=== PATIENT | female | born 1945 | race Caucasian/White ===

== ENCOUNTER 2022-07-18 10:16 | Inpatient (IN) ==
[2022-07-18] MEDS ORDERED: *HR* LORazepam 2 MG/ML VIAL ONE (10:39)
[2022-07-18] MEDS ORDERED: 0.9 % Sodium Chloride 1,000 ML ONE (10:43)
[2022-07-18] MEDS ORDERED: 0.9 % Sodium Chloride 500 ML IVC ONE (10:50)
[2022-07-18] MEDS ORDERED: Ondansetron ODT 4 MG TAB.RAPDIS SL ONE (10:59)
[2022-07-18 11:17] LABS: Basophils % 0.2 %; Hemoglobin 13.5 g/dL (11.5-15.4); Immature Granulocytes % 1.2 % (0-4); Lymphocytes # 1.5 K/mcL (0.6-4.6); Lymphocytes % 15.2 %; Mean Corpuscular HGB Conc 32.9 g/dL (31.6-35.5); Mean Corpuscular Hemoglobin 33.1 pg (28.0-33.3); Mean Corpuscular Volume 100.5 fL (83.0-100.0); Mean Platelet Volume 10.1 fL (9.4-12.4); Monocytes # 0.6 K/mcL (0.0-1.3); Monocytes % 6.3 %; Neutrophils # 7.6 K/mcL (1.6-8.9); Platelet Count 166 K/mcL (140-400); Red Blood Count 4.08 M/mcL (3.82-4.97); Red Cell Distribution Width 13.6 % (11.5-14.5); Segmented Neutrophils % 77.1 %; White Blood Count 9.9 K/mcL (4.3-11.1)
[2022-07-18 11:24] LABS: Prothrombin Time 11.6 Seconds (9.4-12.1)
[2022-07-18 11:44] LABS: Calcium 9.6 mg/dL (8.6-10.3); Potassium 4.6 mEq/L (3.5-5.1); Troponin I 3.15 ng/mL (< 0.04)
[2022-07-18] MEDS ORDERED: *HR* Heparin 5,000 UNIT/ML VIAL IVP PRN ×2 (12:58)
[2022-07-18] MEDS ORDERED: *HR* Heparin 5,000 UNIT/ML VIAL IVP ONE (12:58)
[2022-07-18] MEDS ORDERED: Acetaminophen 325 MG TABLET PO PRN (13:35)
[2022-07-18] MEDS ORDERED: Naloxone 0.4 MG/ML INJ IVP PRN (13:35)
[2022-07-18] MEDS ORDERED: Ondansetron 4 MG/2 ML VIAL IVP PRN (13:35)
[2022-07-18] MEDS ORDERED: Nitroglycerin 0.4 MG TAB.SUBL SL PRN (13:46)
[2022-07-18 14:28] LABS: Hemoglobin 11.8 g/dL (11.5-15.4); Mean Corpuscular HGB Conc 33.7 g/dL (31.6-35.5); Mean Corpuscular Hemoglobin 33.4 pg (28.0-33.3); Mean Corpuscular Volume 99.2 fL (83.0-100.0); Mean Platelet Volume 10.4 fL (9.4-12.4); Red Blood Count 3.53 M/mcL (3.82-4.97); Red Cell Distribution Width 13.5 % (11.5-14.5); White Blood Count 7.4 K/mcL (4.3-11.1)
[2022-07-18 14:43] LABS: Heparin anti-factor XA UFH 0.06 IU/mL (0.30-0.70); Prothrombin Time 11.4 Seconds (9.4-12.1)
[2022-07-18] MEDS ORDERED: D5% in Water 1,000 ML IVC PRN (15:06)
[2022-07-18] MEDS ORDERED: Dextrose Gel 15 GM/37.5 ML TUBE PO PRN ×2 (15:06)
[2022-07-18] MEDS ORDERED: *HR* Dextrose 50 % in Water (Syg) 50 ML SYRINGE IVP PRN (15:06)
[2022-07-18] MEDS: Heparin 25,000UNIT/250ML 1/2NS 25,000 UNIT/250 ML IV.SOLN IVC SCH (17:01)
[2022-07-18] MEDS: Insulin LISPRO 300 UNITS/3 ML VIAL SUBQ SCH ×2 (17:04→20:34)
[2022-07-18 21:42] LABS: Bacteria,Urine Few per hpf (None-Few); Bilirubin,Urine Negative (Negative); Blood,Urine Negative (Negative); Clarity,Urine Clear (Clear); Color,Urine Light-Yellow (Yellow); Glucose,Urine (UA) Normal (Normal); Ketones,Urine Negative (Negative); Leukocyte Esterase,Urine Negative (Negative); Mucus,Urine Few per lpf (None-Few); Nitrite,Urine Positive (Negative); Protein,Urine Negative (Neg-Trace); RBC,Urine 0-3 per hpf (0-3); Specific Gravity,Urine 1.016 (1.010-1.025); Squamous Epithelial Cell,Urine Few per hpf (None-Few); Urobilinogen,Urine Normal (Normal)
[2022-07-19 06:37] LABS: Basophils % 0.1 %; Eosinophils % 0.1 %; Hematocrit 35.2 % (35.3-44.9); Hemoglobin 11.5 g/dL (11.5-15.4); Immature Granulocytes % 0.7 % (0-4); Lymphocytes # 1.4 K/mcL (0.6-4.6); Lymphocytes % 19.4 %; Mean Corpuscular HGB Conc 32.7 g/dL (31.6-35.5); Mean Corpuscular Hemoglobin 33.2 pg (28.0-33.3); Mean Corpuscular Volume 101.7 fL (83.0-100.0); Mean Platelet Volume 10.1 fL (9.4-12.4); Monocytes % 13.4 %; Neutrophils # 4.7 K/mcL (1.6-8.9); Platelet Count 122 K/mcL (140-400); Red Blood Count 3.46 M/mcL (3.82-4.97); Red Cell Distribution Width 13.5 % (11.5-14.5); Segmented Neutrophils % 66.3 %; White Blood Count 7.1 K/mcL (4.3-11.1)
[2022-07-19 07:04] LABS: Calcium 8.9 mg/dL (8.6-10.3); Magnesium 2.3 mg/dL (1.6-2.6); Phosphorous 3.1 mg/dL (2.7-4.5)
[2022-07-19] MEDS: Aspirin Enteric Coated 81 MG Tablet PO SCH (09:23)
[2022-07-19] MEDS: Insulin LISPRO 300 UNITS/3 ML VIAL SUBQ SCH ×4 (09:23→21:11)
[2022-07-19] MEDS: Loratadine 10 MG TABLET PO SCH (09:23)
[2022-07-19 10:53] LABS: Estimated Average Glucose 146 mg/dl; Hemoglobin A1C 6.7 %
[2022-07-19 13:02] LABS: Adenovirus Not Detected (Not Detect); Coronavirus 229E Not Detected (Not Detect); Coronavirus HKU1 Not Detected (Not Detect); Coronavirus NL63 Not Detected (Not Detect); Coronavirus OC43 Not Detected (Not Detect); Human Metapneumovirus Not Detected (Not Detect); Human Rhinovirus/Enterovirus Not Detected (Not Detect); Influenza A Subtype 2009 H1 Not Detected (Not Detect); Influenza B Not Detected (Not Detect); Parainfluenza Virus 1 Not Detected (Not Detect); Parainfluenza Virus 2 Not Detected (Not Detect); Parainfluenza Virus 3 Not Detected (Not Detect); SARS-CoV-2 Not Detected (Not Detect)
[2022-07-19 13:03] LABS: Bordetella Pertussis Not Detected (Not Detect); Chlamydophila pneumoniae Not Detected (Not Detect); Mycoplasma pneumoniae Not Detected (Not Detect); Parainfluenza Virus 4 Not Detected (Not Detect); Respiratory Syncytial Virus Not Detected (Not Detect)
[2022-07-19] MEDS: Heparin 25,000UNIT/250ML 1/2NS 25,000 UNIT/250 ML IV.SOLN IVC SCH (17:44)
[2022-07-20 03:35] LABS: Basophils % 0.2 %; Eosinophils % 0.4 %; Hematocrit 34.2 % (35.3-44.9); Hemoglobin 11.2 g/dL (11.5-15.4); Immature Platelets 3.3 % (1.1-6.1); Lymphocytes # 1.2 K/mcL (0.6-4.6); Lymphocytes % 22.9 %; Mean Corpuscular HGB Conc 32.7 g/dL (31.6-35.5); Mean Corpuscular Volume 100.9 fL (83.0-100.0); Mean Platelet Volume 10.2 fL (9.4-12.4); Monocytes # 0.8 K/mcL (0.0-1.3); Monocytes % 15.1 %; Neutrophils # 3.2 K/mcL (1.6-8.9); Platelet Count 136 K/mcL (140-400); Red Blood Count 3.39 M/mcL (3.82-4.97); Red Cell Distribution Width 13.2 % (11.5-14.5); Segmented Neutrophils % 60.4 %; White Blood Count 5.2 K/mcL (4.3-11.1)
[2022-07-20 03:43] LABS: Calcium 8.3 mg/dL (8.6-10.3); Magnesium 1.9 mg/dL (1.6-2.6); Potassium 3.3 mEq/L (3.5-5.1)
[2022-07-20] MEDS: Aspirin Enteric Coated 81 MG Tablet PO SCH (08:21)
[2022-07-20] MEDS: Loratadine 10 MG TABLET PO SCH (08:22)
[2022-07-20] MEDS: Insulin LISPRO 300 UNITS/3 ML VIAL SUBQ SCH ×4 (08:23→19:57)
[2022-07-20 12:11] LABS: Troponin I 1.22 ng/mL (< 0.04)
[2022-07-20] MEDS ORDERED: *HR* Heparin 10,000 UNIT/10 ML VIAL ONE (12:43)
[2022-07-20] MEDS ORDERED: Heparin 1,000 UNITS/500 mL 500 ML ONE (12:43)
[2022-07-20] MEDS ORDERED: 0.9 % Sodium Chloride 1,000 ML ONE ×2 (12:43→12:44)
[2022-07-20] MEDS ORDERED: Iopamidol - 370 200 ML INFUS..BTL ONE (12:44)
[2022-07-20] MEDS ORDERED: Nitroglycerin 1,000 MCG/5 ML VIAL IV ONE (12:44)
[2022-07-20] MEDS ORDERED: *HR* FentaNYL (PF) 100 MCG/2 ML VIAL ONE (12:54)
[2022-07-20] MEDS ORDERED: *HR* Midazolam HCl 2 MG/2 ML VIAL ONE (12:55)
[2022-07-20] MEDS: Heparin 25,000UNIT/250ML 1/2NS 25,000 UNIT/250 ML IV.SOLN IVC SCH (19:57)
[2022-07-21 02:07] LABS: Eosinophils % 0.3 %; Hemoglobin 12.5 g/dL (11.5-15.4); Mean Corpuscular HGB Conc 32.6 g/dL (31.6-35.5); Mean Corpuscular Volume 101.1 fL (83.0-100.0); Monocytes # 0.9 K/mcL (0.0-1.3); Red Cell Distribution Width 13.2 % (11.5-14.5); Segmented Neutrophils % 69.1 %
[2022-07-21 02:25] LABS: Basophils % 0.3 %; Hematocrit 38.4 % (35.3-44.9); Immature Granulocytes % 1.3 % (0-4); Lymphocytes # 1.2 K/mcL (0.6-4.6); Lymphocytes % 16.8 %; Mean Corpuscular Hemoglobin 32.9 pg (28.0-33.3); Mean Platelet Volume 9.6 fL (9.4-12.4); Monocytes % 12.2 %; Platelet Count 141 K/mcL (140-400); White Blood Count 7.2 K/mcL (4.3-11.1)
[2022-07-21 02:30] LABS: Calcium 8.3 mg/dL (8.6-10.3); Magnesium 1.9 mg/dL (1.6-2.6); Potassium 4.3 mEq/L (3.5-5.1)
[2022-07-21] MEDS: Insulin LISPRO 300 UNITS/3 ML VIAL SUBQ SCH ×4 (08:19→20:37)
[2022-07-21] MEDS: Aspirin Enteric Coated 81 MG Tablet PO SCH (08:24)
[2022-07-21] MEDS: Loratadine 10 MG TABLET PO SCH (08:24)
[2022-07-21] MEDS ORDERED: *HR* Heparin 5,000 UNIT/ML VIAL ONE (20:34)
[2022-07-21] MEDS: *HR* Heparin 5,000 UNIT/ML VIAL SQ SCH (20:37)
[2022-07-22 07:26] VITALS: O2SAT 98
[2022-07-22] MEDS: Insulin LISPRO 300 UNITS/3 ML VIAL SUBQ SCH ×2 (07:40→12:32)
[2022-07-22] MEDS: Loratadine 10 MG TABLET PO SCH (08:39)
[2022-07-22] MEDS: *HR* Heparin 5,000 UNIT/ML VIAL SQ SCH ×2 (08:40→14:05)
[2022-07-22] MEDS: Aspirin Enteric Coated 81 MG Tablet PO SCH (08:40)
[2022-07-22] MEDS ORDERED: Verapamil ER (24 HR) 120 MG TABLET.ER PO SCH (09:00)
[2022-07-22 12:29] VITALS: BP 167/97; PULSE 93; TEMP 98.2
== END 2022-07-22 16:30 | disposition home or self-care (01) | DRG 281 ==
LOC: EMEROOARM 10:16 → 2NNU 10:16 → SUATTDRO 12:57 → OBSVTOIN 12:57 → 2NNU 14:41
PROVIDERS: ADMIT Pharmacist; ATTEND Hospitalist

== ENCOUNTER 2022-08-19 05:40 | Observation (INO) ==
[2022-08-19] MEDS ORDERED: 0.9 % Sodium Chloride 1,000 ML IVC ONE ×2 (05:54→08:56)
[2022-08-19] MEDS ORDERED: *HR* Etomidate 20 MG/10 ML AMPUL IVP ONE (05:54)
[2022-08-19 06:06] LABS: Basophils % 0.3 %; Hematocrit 39.1 % (35.3-44.9); Hemoglobin 12.9 g/dL (11.5-15.4); Lymphocytes # 1.4 K/mcL (0.6-4.6); Lymphocytes % 14.2 %; Mean Corpuscular Hemoglobin 32.9 pg (28.0-33.3); Mean Corpuscular Volume 99.7 fL (83.0-100.0); Mean Platelet Volume 10.3 fL (9.4-12.4); Monocytes # 0.4 K/mcL (0.0-1.3); Monocytes % 4.4 %; Neutrophils # 8.1 K/mcL (1.6-8.9); Platelet Count 168 K/mcL (140-400); Red Blood Count 3.92 M/mcL (3.82-4.97); Red Cell Distribution Width 13.5 % (11.5-14.5); Segmented Neutrophils % 80.1 %; White Blood Count 10.1 K/mcL (4.3-11.1)
[2022-08-19 06:36] LABS: Calcium 10.8 mg/dL (8.6-10.3); Magnesium 1.6 mg/dL (1.6-2.6); Potassium 4.9 mEq/L (3.5-5.1); Troponin I 0.26 ng/mL (< 0.04)
[2022-08-19 07:42] LABS: Influenza A PCR Negative (Negative); Influenza B PCR Negative (Negative); Resp. Syncytial Virus PCR Negative (Negative)
[2022-08-19 07:43] LABS: SARS-CoV-2 by PCR (In House) Negative (Negative)
[2022-08-19] MEDS ORDERED: Ondansetron 4 MG/2 ML VIAL IVP PRN (07:55)
[2022-08-19] MEDS ORDERED: Acetaminophen 325 MG TABLET PO PRN (07:55)
[2022-08-19] MEDS ORDERED: Melatonin 3 MG TABLET PO PRN (07:55)
[2022-08-19 07:58] LABS: Bacteria,Urine Many per hpf (None-Few); Bilirubin,Urine Negative (Negative); Blood,Urine Negative (Negative); Clarity,Urine Turbid (Clear); Color,Urine Yellow (Yellow); Glucose,Urine (UA) 150 mg/dL (Normal); Hyaline Casts,Urine Few per lpf (None Seen); Ketones,Urine 20 mg/dL (Negative); Leukocyte Esterase,Urine Moderate (Negative); Mucus,Urine Few per lpf (None-Few); Nitrite,Urine Negative (Negative); Protein,Urine 30 mg/dL (Neg-Trace); RBC,Urine 0-3 per hpf (0-3); Specific Gravity,Urine 1.029 (1.010-1.025); Squamous Epithelial Cell,Urine Few per hpf (None-Few); Urobilinogen,Urine Normal (Normal); WBC,Urine 15-30 per hpf (0-3)
[2022-08-19] MEDS ORDERED: Verapamil ER (24 HR) 120 MG TABLET.ER PO SCH (09:00)
[2022-08-19] MEDS ORDERED: *HR* Dextrose 50 % in Water (Syg) 50 ML SYRINGE IVP PRN (13:05)
[2022-08-19] MEDS ORDERED: Dextrose Gel 15 GM/37.5 ML TUBE PO PRN ×2 (13:05)
[2022-08-19] MEDS ORDERED: D5% in Water 1,000 ML IVC PRN (13:05)
[2022-08-19] MEDS ORDERED: METFORMIN HCL 500 MG PO SCH (17:00)
[2022-08-20] MEDS ORDERED: *HR* Enoxaparin 40 MG/0.4 ML SYRINGE SQ SCH (06:00)
[2022-08-20] MEDS ORDERED: Verapamil ER (24 HR) 180 MG TABLET.ER PO SCH (09:00)
[2022-08-20 19:12] VITALS: BP 123/78; PULSE 66; TEMP 97.9; O2SAT 93
== END 2022-08-19 21:37 | disposition home or self-care (01) ==
LOC: EMEROOARM 05:40 → 3BNU 05:40
PROVIDERS: ADMIT Internal Medicine; ATTEND Internal Medicine